=== PATIENT | female | born 1985 | race African-American/Black ===

== ENCOUNTER 2019-12-03 17:37 | Emergency (ER) | payer MEDICAID ==
[~2019-12-03] VITALS: Ht 177.8 cm; Wt 105.3 kg
[2019-12-03 19:35] LABS: BILIRUBIN,URINE NEGATIVE (NEG); CLARITY,URINE CLEAR; COLOR,URINE YELLOW; NITRITE,URINE NEGATIVE (NEG); PROTEIN,URINE NEGATIVE (NEG-TRACE)
[2019-12-03 19:39] LABS: BASO # 0.1 x10^3/uL (0.0-0.2); BASO % 1 % (0-3); EOS # 0.1 x10^3/uL (0.0-0.7); EOS % 2 % (0-3); HEMATOCRIT 31.9 % (36.0-47.0); HEMOGLOBIN 9.9 g/dL (12.0-15.5); LYMPH # 2.4 x10^3/uL (1.0-4.8); LYMPH % 35 % (24-48); MEAN CORPUSCULAR HEMOGLOBIN 21 pg (25-35); MEAN CORPUSCULAR HGB CONC 31 g/dL (31-37); MEAN CORPUSCULAR VOLUME 67 fL (79-100); MONO # 0.4 x10^3/uL (0.0-1.1); MONO % 6 % (0-9); NEUT # 3.8 x10^3/uL (1.8-7.7); NEUT % 56 % (31-73); PLATELET COUNT 536 x10^3/uL (140-400); RED BLOOD COUNT 4.73 x10^6/uL (3.50-5.40); RED CELL DISTRIBUTION WIDTH 18.9 % (11.5-14.5); WHITE BLOOD COUNT 6.8 x10^3/uL (4.0-11.0)
[2019-12-03 19:42] LABS: CALCIUM 8.5 mg/dL (8.5-10.1); CREATININE 0.9 mg/dL (0.6-1.0); GFR 72.6; POTASSIUM 4.2 mmol/L (3.5-5.1)
[2019-12-03 19:46] LABS: BACTERIA,URINE MODERATE /HPF (0-FEW); RBC,URINE 0 /HPF (0-2); SQUAMOUS EPITHELIAL CELL,UR MOD /LPF
[2019-12-03 19:55] LABS: ALBUMIN 3.7 g/dL (3.4-5.0); ALBUMIN/GLOBULIN RATIO 0.9 (1.0-1.7); MAGNESIUM 2.1 mg/dL (1.8-2.4); TOTAL BILIRUBIN 0.1 mg/dL (0.2-1.0); TOTAL PROTEIN 7.6 g/dL (6.4-8.2)
[2019-12-03 20:05] LABS: PLT ESTIMATE INCREASED (ADEQUATE)
[2019-12-03 20:11] LABS: ANISOCYTOSIS SLIGHT; HYPOCHROMIA MARKED; MICROCYTOSIS MARKED; OVALOCYTES MOD; POIKILOCYTOSIS SLIGHT
[2019-12-03 20:12] LABS: TEAR DROP CELLS PRESENT
[2019-12-03] MEDS ORDERED: IV NORMAL SALINE 1000ML BAG 1,000 ML IV ONE (20:30)
--- NOTE | 2019-12-03 21:01 | PHYS DOC ---
Past Medical History Past Medical History: No Pertinent History Additional Past Medical Histor: Obesity, constipation, (PHIL LONG APRN) Past Surgical History: Gastric Bypass Additional Past Surgical Histo: Dental extractions (PHIL LONG APRN) Smoking Status: Current Every Day Smoker Alcohol Use: Occasionally Drug Use: None (PHIL LONG APRN) General Adult EDM: Chief Complaint: DIZZY/LIGHT HEADED HPI: HPI: Patient is a 34 year old female who presents to the emergency department with complaints of dizziness, diffuse abdominal cramping, nausea, and constipation. She reports that her symptoms began 8 days prior to arrival. Initially, she was having nausea and vomiting, but denies any vomiting for the last 4 to 5 days. She states that 2 days ago she took some magnesium citrate for relief of the constipation which did cause her to have a bowel movement followed by some diarrhea. She denies any bowel movement today. She denies any blood in her stool or emesis. Patient states throughout this time she has felt very fatigued, she reports a history of anemia following her gastric bypass. She denies any syncope, loss of consciousness, cough, shortness of breath, edema, fever, headache, ear pain, or ringing in her ears. She currently denies any pain but states that the pain can be provoked by palpation of her abdomen, when the pain is there it feels like a sharp cramping. She denies any radiation of the pain (PHIL LONG APRN) Review of Systems: Review of Systems: Complete ROS is negative unless otherwise stated in the HPI. (PHIL LONG APRN) Heart Score: Risk Factors: Risk Factors: DM, Current or recent (<one month) smoker, HTN, HLP, family history of CAD, obesity. Risk Scores: Score 0 - 3: 2.5% MACE over next 6 weeks - Discharge Home Score 4 - 6: 20.3% MACE over next 6 weeks - Admit for Clinical Observation Score 7 - 10: 72.7% MACE over next 6 weeks - Early Invasive Strategies (PHIL LONG APRN) Current Medications: Current Medications Medications (Trade) Dose Ordered Sig/Otto Start Time Stop Time Status Last Admin Dose Admin Sodium Chloride 1,000 ml @ 1,000 mls/hr 1X ONCE 12/03/19 20:30 12/03/19 21:29 12/03/19 20:29 1,000 MLS/HR (PHIL LONG APRN) Allergies: Allergies: Allergies Coded Allergies Type Severity Reaction Last Updated Verified Sulfa (Sulfonamide Antibiotics) Allergy Intermediate RASH 12/03/19 Yes cefaclor Allergy Intermediate RASH 12/03/19 Yes (PHIL LONG APRN) Physical Exam: PE: Constitutional: Well developed, well nourished, no acute distress, non-toxic appearance obese. [] HENT: Normocephalic, atraumatic, bilateral external ears normal, dry lips and dry mucous membranes present, nose normal. [] Eyes: PERRLA, EOMI, conjunctiva normal, no discharge. [] Neck: Normal range of motion, no stridor. [] Cardiovascular:Heart rate regular rhythm, no murmur [] Lungs & Thorax: Bilateral breath sounds clear to auscultation, Respirations even and unlabored, no retractions, no respiratory distress [] Abdomen: Bowel sounds normal, soft, nonspecific tenderness to palpation in all quadrants, no rebound tenderness, no guarding, no masses, no pulsatile masses. [] Skin: Warm, dry, no erythema, no rash. [] Back: No tenderness Extremities: No cyanosis, ROM intact, no edema. [] Neurologic: Alert and oriented X 3, no focal deficits noted. [] Psychologic: Affect normal, judgement normal, mood normal. [] (PHIL LONG APRN) Current Patient Data: Labs: Laboratory Tests Test 12/03/19 18:20 12/03/19 18:44 POC Urine HCG, Qualitative Hcg negative (Negative) White Blood Count 6.8 x10^3/uL (4.0-11.0) Red Blood Count 4.73 x10^6/uL (3.50-5.40) Hemoglobin 9.9 g/dL (12.0-15.5) L Hematocrit 31.9 % (36.0-47.0) L Mean Corpuscular Volume 67 fL (79-100) L Mean Corpuscular Hemoglobin 21 pg (25-35) L Mean Corpuscular Hemoglobin Concent 31 g/dL (31-37) Red Cell Distribution Width 18.9 % (11.5-14.5) H Platelet Count 536 x10^3/uL (140-400) H Neutrophils (%) (Auto) 56 % (31-73) Lymphocytes (%) (Auto) 35 % (24-48) Monocytes (%) (Auto) 6 % (0-9) Eosinophils (%) (Auto) 2 % (0-3) Basophils (%) (Auto) 1 % (0-3) Neutrophils # (Auto) 3.8 x10^3/uL (1.8-7.7) Lymphocytes # (Auto) 2.4 x10^3/uL (1.0-4.8) Monocytes # (Auto) 0.4 x10^3/uL (0.0-1.1) Eosinophils # (Auto) 0.1 x10^3/uL (0.0-0.7) Basophils # (Auto) 0.1 x10^3/uL (0.0-0.2) Platelet Estimate Increased (ADEQUATE) Hypochromasia Marked Poikilocytosis Slight Anisocytosis Slight Microcytosis Marked Tear Drop Cells Present Ovalocytes Mod Urine Collection Type Void Urine Color Yellow Urine Clarity Clear Urine pH 7.0 (<5.0-8.0) Urine Specific [place] 1.015 (1.000-1.030) Urine Protein Negative mg/dL (NEG-TRACE) Urine Glucose (UA) Negative mg/dL (NEG) Urine Ketones (Stick) Negative mg/dL (NEG) Urine Blood Negative (NEG) Urine Nitrite Negative (NEG) Urine Bilirubin Negative (NEG) Urine Urobilinogen Dipstick 1.0 mg/dL (0.2 mg/dL) Urine Leukocyte Esterase Trace (NEG) Urine RBC 0 /HPF (0-2) Urine WBC 11-20 /HPF (0-4) Urine Squamous Epithelial Cells Mod /LPF Urine Bacteria Moderate /HPF (0-FEW) Urine Mucus Slight /LPF Sodium Level 137 mmol/L (136-145) Potassium Level 4.2 mmol/L (3.5-5.1) Chloride Level 103 mmol/L (98-107) Carbon Dioxide Level 22 mmol/L (21-32) Anion Gap 12 (6-14) Blood Urea Nitrogen 11 mg/dL (7-20) Creatinine 0.9 mg/dL (0.6-1.0) Estimated GFR (Cockcroft-Gault) 72.6 BUN/Creatinine Ratio 12 (6-20) Glucose Level 91 mg/dL (70-99) Calcium Level 8.5 mg/dL (8.5-10.1) Magnesium Level 2.1 mg/dL (1.8-2.4) Total Bilirubin 0.1 mg/dL (0.2-1.0) L Aspartate Amino Transferase (AST) 13 U/L (15-37) L Alanine Aminotransferase (ALT) 12 U/L (14-59) L Alkaline Phosphatase 84 U/L (46-116) Total Protein 7.6 g/dL (6.4-8.2) Albumin 3.7 g/dL (3.4-5.0) Albumin/Globulin Ratio 0.9 (1.0-1.7) L Lipase 203 U/L (73-393) Laboratory Tests 12/03/19 18:44 Laboratory Tests 12/03/19 18:44 Vital Signs: Vital Signs Date Time Temp Pulse Resp B/P (MAP) Pulse Ox O2 Delivery O2 Flow Rate FiO2 12/03/19 18:16 98.8 79 16 133/84 (100) 100 Room Air 98.8 (PHIL LONG APRN) EKG: EKG: [] (PHIL LONG APRN) Radiology/Procedures: Radiology/Procedures: [] (PHIL LONG APRN) Course & Med Decision Making: Course & Med Decision Making Pertinent Labs and Imaging studies reviewed. (See chart for details) Patient is a 34-year-old female who presents to the emergency department with complaints of intermittent abdominal pain and constipation for 8 days that initially began with nausea and vomiting that has since resolved. CBC revealed hemoglobin of 9.9, hematocrit of 31.9 was otherwise unremarkable; CMP is unremarkable; lipase is 203; this is concerning for UTI with 11-20 white blood cells and moderate bacteria, urine hCG is negative. Patient was symptomatic with a 49 beats pulse increase during orthostatic blood pressures. She was given a liter of normal saline in the emergency department. Prescription written for Macrobid 100 mg p.o. twice daily x7 days. A CT of her abdomen pelvis with IV contrast is pending. Dr. Hair will follow-up on this result and finalize the patient disposition and discharge instructions. 2112-report to Dr. Hair at this time [] (PHIL LONG APRN) Course & Med Decision Making Impression: No acute abnormality seen throughout the abdomen or pelvis. The patient is status post antecolic Greyson-en-Y gastric bypass without complicating features. (CYNDI HAIR DO) Dwayne Disclaimer: Dwayne Disclaimer: This electronic medical record was generated, in whole or in part, using a voice recognition dictation system. (PHIL LONG APRN) Departure Departure Impression: Primary Impression: Urinary tract infection Qualified Codes: N39.0 - Urinary tract infection, site not specified Additional Impressions: Orthostatic dizziness Nonspecific abdominal pain Disposition: HOME, SELF-CARE Condition: STABLE Referrals: NO PCP (PCP) Patient Instructions: Abdominal Pain (Nonspecific), Orthostatic Hypotension, Urinary Tract Infection, [id number] Additional Instructions: Fill prescription(s) and use as directed. Avoid bladder irritants such as caffeine, carbonation, and spicy foods. Recommend clear fluids for the next 24 hours. Then you may advance to bland foods such as bananas, rice, applesauce, and dry toast. Follow-up with your primary care doctor next week. Return to the emergency room if your symptoms worsen or you develop a fever.. Scripts Nitrofurantoin Monohyd/M-Cryst (MACROBID 100 MG CAPSULE) 100 Mg Capsule 1 CAP PO BID for 7 Days, #14 CAP 0 Refills Prov: PHIL LONG APRN 12/03/19 Justicifation of Admission Dx: Justifications for Admission: Justification of Admission Dx: N/A (PHIL LONG APRN) PHIL LONG APRN Dec 03, 2019 21:01 CYNDI HAIR DO Dec 03, 2019 23:06
[2019-12-03] MEDS ORDERED: NITR100C62 PO (21:15)
[2019-12-03] MEDS ORDERED: IOHEXOL 300 MG/ML 100ML VIAL. IV ONE (22:00)
[2019-12-03] MEDS ORDERED: CONTRAST GIVEN. MC PRN (22:00)
--- NOTE | 2019-12-03 22:12 | RAD ---
Study: CT abdomen/pelvis with intravenous contrast Indication: Abdominal pain and constipation. History of gastric bypass. Comparison: None. Technique: Helical CT imaging performed of the abdomen and pelvis after the intravenous administration of 75 cc Omnipaque 300 contrast. Sagittal and coronal reformats were obtained. One or more of the following individualized dose reduction techniques were utilized for this examination: 1. Automated exposure control 2. Adjustment of the mA and/or kV according to patient size 3. Use of iterative reconstruction technique. Findings: Chest: Unremarkable. Liver: Unremarkable. Gallbladder/Biliary Tree: Surgically absent. Pancreas: Unremarkable. Spleen: Unremarkable. Adrenal Glands: Unremarkable. Kidneys/Ureters/Bladder: Unremarkable renal parenchyma. No hydroureteronephrosis. Unremarkable bladder. Reproductive Organs: Within normal limits for patient age to include a 3.2 cm ovarian cyst on the left. Colon: Mild volume well-formed stool burden. Appendix: Surgically absent. Small Bowel: Sequela of an antecolic Greyson-en-Y gastric bypass. Expected patulous small bowel caliber at the distal anastomosis. The excluded portion of the stomach is unremarkable. No complicating features seen to involve the bypass. No bowel obstruction. Stomach: Gastric bypass changes, as above. Vasculature: Normal aortic caliber. Lymph Nodes: Unremarkable. Peritoneum and Body Wall: No free fluid or gas. Bones: No acute or aggressive osseous process. Chronic right iliac wing deformity. Miscellaneous: None. Impression: No acute abnormality seen throughout the abdomen or pelvis. The patient is status post antecolic Greyson-en-Y gastric bypass without complicating features. Electronically signed by: LORNA DELGADILLO MD (12/03/2019 10:09 PM) [id number]
[2019-12-03 23:13] VITALS: BP 128/89
== END 2019-12-03 23:13 | disposition home or self-care (01) ==
LOC: ER 17:37
DX: N39.0 Urinary tract infection, site not specified (principal); R42 Dizziness and giddiness; F17.200 Nicotine dependence, unspecified, uncomplicated; K59.00 Constipation, unspecified; Z95.1 Presence of aortocoronary bypass graft; Z88.2 Allergy status to sulfonamides; Z88.8 Allergy status to other drugs, medicaments and biological substances
CPT/HCPCS: 36415; 74177; 80053; 81001; 81025; 83690; 83735; 85025; 87086; 96360; 99285; J7030; Q9967